=== PATIENT | male | born 1965 | race African-American/Black ===

== ENCOUNTER 2025-04-10 21:35 | Emergency (ER) | payer MEDICAID ==
[~2025-04-10] VITALS: Ht 188 cm; Wt 100.0 kg
[2025-04-10 21:43] VITALS: O2SAT 99
[2025-04-10] MEDS: SODIUM CHLORIDE 0.9% 1,000 ML IV ONE (22:36)
[2025-04-10 23:45] LABS: BASOPHILS % 0.5 % (0.0-2.0); EOSINOPHILS % 2.1 % (0.0-5.0); HEMATOCRIT. 39.6 % (42.0-52.0); HEMOGLOBIN. 13.4 g/dL (14.0-18.0); LYMPHOCYTES % 19.3 % (20.0-50.0); MEAN PLATELET VOLUME 6.3 fl (7.4-10.4); MONOCYTES % 8.5 % (2.0-8.0); NEUTROPHILS % 69.6 % (40.0-76.0); PLATELET 225 x1000/uL (130-400); RED BLOOD CELL COUNT 4.26 mill/uL (4.7-6.1); RED CELL DISTRIBUTION WIDTH 12.6 % (11.6-14.6)
[2025-04-10 23:53] LABS: CREATININE 1.3 mg/dL (0.6-1.3)
[2025-04-10 23:54] LABS: UREA NITROGEN BLOOD 11 mg/dL (9-23)
[2025-04-10 23:55] LABS: ASPARTATE AMINOTRANSFERASE 14 IU/L (<34); TROPONIN I HIGH SENSITIVITY 8 ng/L (3.0-53)
[2025-04-10 23:56] LABS: BILIRUBIN DIRECT 0.1 mg/dL (<=3.0); BILIRUBIN TOTAL 0.6 mg/dL (0.1-1.0); PROTEIN TOTAL 6.8 g/dL (6.0-8.3)
[2025-04-11 01:22] VITALS: BP 137/72; PULSE 85; RESP 21; TEMP 36.6; O2SAT 97
== END 2025-04-11 01:29 | disposition left against medical advice (07) ==
LOC: ER 21:35
DX: R55 Syncope and collapse (principal); E78.00 Pure hypercholesterolemia, unspecified; F12.90 Cannabis use, unspecified, uncomplicated; I10 Essential (primary) hypertension; F17.200 Nicotine dependence, unspecified, uncomplicated
CPT/HCPCS: 80076; 80048; 80320; 85025; 84484; 36415; 93005; 96360; 99284; J7030; G0480